=== PATIENT | male | born 1965 | race Two or more races ===

== ENCOUNTER 2017-08-31 17:22 | Emergency (ER) | payer SELFPAY ==
[~2017-08-31] VITALS: Ht 172.7 cm; Wt 85.0 kg
[2017-08-31] MEDS ORDERED: ONDANSETRON HCL 4MG/2ML VIAL IV STA (18:46)
[2017-08-31] MEDS ORDERED: SODIUM CHLORIDE 0.9% 1,000 ML IV ONE (18:46)
[2017-08-31 19:07] LABS: BASOPHILS % 0.6 % (0.0-2.0); EOSINOPHILS % 1.5 % (0.0-5.0); HEMATOCRIT. 37.5 % (42.0-52.0); HEMOGLOBIN. 12.6 g/dL (14.0-18.0); LYMPHOCYTES % 39.6 % (20.0-50.0); MEAN CORPUSCULAR VOLUME 80.4 fL (80.0-94.0); MEAN PLATELET VOLUME 7.6 fl (7.4-10.4); MONOCYTES % 8.3 % (2.0-8.0); PLATELET 157 x1000/uL (130-400); RED BLOOD CELL COUNT 4.67 mill/uL (4.7-6.1); RED CELL DISTRIBUTION WIDTH 19.9 % (11.6-14.6)
[2017-08-31 19:14] LABS: CHLORIDE 111 mEq/L (98-107); INR 1.1
[2017-08-31 19:19] LABS: ETHANOL BLOOD 278 mg/dL
[2017-08-31] MEDS ORDERED: IOHEXOL-350 100 ML BOTTLE ONE (21:33)
[2017-08-31 23:53] LABS: CLARITY URINE CLEAR (CLEAR); COLOR URINE YELLOW (YELLOW); KETONES URINE NEGATIVE (NEGATIVE); LEUKOCYTE ESTERASE URINE NEGATIVE (NEGATIVE); NITRITE URINE NEGATIVE (NEGATIVE); OCCULT BLOOD URINE NEGATIVE (NEGATIVE); PH URINE 5.5 (4.5-8.0); PROTEIN URINE NEGATIVE (NEGATIVE); SPECIFIC GRAVITY URINE 1.029 (1.005-1.030); UROBILINOGEN URINE 0.2 E.U./dL (0.2-1.0)
[2017-09-01 02:08] VITALS: BP 132/72
== END 2017-09-01 02:20 | disposition home or self-care (01) ==
LOC: ER 17:22
DX: F10.229 Alcohol dependence with intoxication, unspecified (principal); R10.32 Left lower quadrant pain; K74.60 Unspecified cirrhosis of liver
CPT/HCPCS: 36415; 74177; 80053; 81003; 83690; 85025; 85610; 96361; 96374; 99285; G0482; J2405; J7030; Q9967; Z7610